=== PATIENT | female | born 1990 | race Caucasian/White ===

== ENCOUNTER 2019-08-01 14:20 | Inpatient (IN) | payer OTHER ==
[2019-08-01 16:23] VITALS: BMI 29.9
[2019-08-01] MEDS ORDERED: ELECTROLYTE-148 SOLN 1,000 ML IV SCH ×2 (16:30→21:00)
[2019-08-01] MEDS ORDERED: BUTORPHANOL TARTRATE 1 MG/ML VIAL ONE ×2 (17:34)
[2019-08-01] MEDS ORDERED: PROMETHAZINE HCL 25 MG/1 ML VIAL ONE (17:34)
[2019-08-01] MEDS ORDERED: BUTORPHANOL TARTRATE 1 MG/ML VIAL IVPUSH ONE (17:45)
[2019-08-01] MEDS ORDERED: PROMETHAZINE HCL 25 MG/1 ML VIAL IVPB ONE (17:45)
[2019-08-01 18:15] LABS: BASO % 0.6 % (0-2.0); EOS % 1.3 % (0-4.5); HEMATOCRIT 37.4 % (32.4-45.2); HEMOGLOBIN 12.4 GM/dL (10.7-15.3); LYMPH % 14.8 % (8-40); MCHC 33.2 g/dl (32.0-36.0); MEAN CELL VOLUME 87.2 fl (80-96); MEAN PLT VOLUME 8.8 fl (7.5-11.1); NEUT % 78.3 % (42.8-82.8); PLATELET COUNT 186 K/MM3 (134-434); RBC 4.29 M/mm3 (3.60-5.2); RDW 14.6 % (11.6-15.6); WHITE BLOOD COUNT 10.5 K/mm3 (4.0-10.0)
[2019-08-01 18:28] LABS: INR 0.88 (0.83-1.09); PROTHROMBIN TIME (PATIENT) 10.4 SEC (9.7-13.0)
[2019-08-01 18:38] LABS: BLOOD UREA NITROGEN 6.4 mg/dL (7-18); CALCIUM 8.4 mg/dL (8.5-10.1); CREATININE 0.6 mg/dL (0.55-1.3)
[2019-08-01] MEDS ORDERED: FENTANYL/BUPIVACAINE/NS/PF - PCEA - 50 ML DISP.SYRIN EP ONE (21:12)
--- NOTE | 2019-08-01 21:13 | HP ---
Past Medical History - Primary Care Physician PCP:: David Krueger - Admission Chief Complaint: 29yo P0 with at EGA 38w2d presented with spontaneous labor. History of Present Illness: complicated by: 1. Transfer of care to [facility] at 13 wks 2. GDM on diet diagnosde at 32 wks. Pt seen/consulted Dr. Logan for MFM Pt was admitted in early latent labor. SROM with clear fluid at 5:25pm. FHR has been category I vaginal GBS negative labs WNL. 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: No: Alzheimer's, CVA, Dementia, Migraine, Multiple Sclerosis, Peripheral Neuropathy, Parkinson's, Seizure, Syncope, TIA, Vertigo, Other Cardiovascular: No: AFIB, Aneurysm, Aortic Insufficiency, Aortic Stenosis, CAD, CHF, Deep Vein Thrombosis, HTN, Hyperlipdemia, [place], Mitral Insufficiency, Mitral Stenosis, Murmur, Pulmonary Hypertension, Other Pulmonary: No: Asthma, Bronchitis, Cancer, COPD, O2 Dependent, Pneumonia, Previously Intubated, Pulmonary Embolus, Pulmonary Fibrosis, Sleep Apnea, Other Gastrointestinal: No: Ascites, Cancer, Constipation, Crohn's Disease, Diverticulitis, Diverticulosis, Esophageal Varices, Gastritis, GERD, GI Bleed, Hemorrhoids, Hiatal Hernia, Inflamatory Bowel Disease, Irritable Bowel Disease, Pancreatitis, Peptic Ulcer Disease, Ulcerative Colitis, Other Hepatobiliary: No: Cirrhosis, Cholelithiasis, Cholecystitis, Choledocholithiasis , Hepatitis A, Hepatitis B, Hepatitis C, Other Renal/: No: Renal Failure, Renal Inusuff, BPH, Cancer, Hematuria, Hemodialysis , Neurogenic Bladder, Renal Calculi, UTI, Other Reproductive: No: Ectopic , Endometriosis, Fibroids, PID, Polycystic Ovary Syndrome, Postmenopausal, Other ...: 1 ...Para: 0 ...LMP: 11/09/18 ... Weeks Gestation by Dates: 38.2 ...EDC by Dates: 08/16/19 ...EDC by Sono: 08/13/19 Heme/Onc: No: Anemia, B12 Deficiency, Bleeding Disorder, Cancer, Current Chemotherapy, Current Radiation Therapy, Hemochromatosis, Hypercoaguable State, Myeloproliferative Synd, Sickle Cell Disease, Sickle Cell Trait, Thrombocytopenia, Other Infectious Disease: No: AIDS, C-Diff, Herpes Zoster, HIV, MRSA, STD's, Tuberculosis, VREF, Other Psych: No: Addictions, Anxiety, Bipolar, Depression, Panic, Psychosis, Schizophrenia, Other Musculoskeletal: No: Bursitis, Chronic low back pain, Hemiparesis, Hemiplegia, Osteoarthritis, Paraplegia, Other Rheumatology: No: Fibromyalgia, Gout, Lupus, Rheumatoid Arthritis, Sarcoidosis, Vasculitis, Other ENT: No: Allergic Rhinitis, Sinusitis, Other Endocrine: No: Alg[place]'s Disease, Francis's Disease, Diabetes Insipidus, Diabetes Mellitus, Hyperparathyroidism, Hyperthyroidism, Hypothyroidism, Osteopenia, SIADH, Other Dermatology: No: Basal Cell, Cellulitis, Eczema, Melanoma, Psoriasis, Squamous Cell, Other - Past Surgical History Past Surgical History: Yes: None Hx Myomectomy: No Hx Transabdominal Cerclage: No - Smoking History Smoking history: Never smoked Have you smoked in the past 12 months: No - Alcohol/Substance Use Hx Alcohol Use: No History of Substance Use: reports: None - Social History Usual Living Arrangement: Yes: With Spouse Do you think of yourself as: Straight/Heterosexual ADL: Independent Occupation: works for [employer] History of Recent Travel: No Home Medications - Allergies Allergies/Adverse Reactions: Allergies Allergy/AdvReac Type Severity Reaction Status Date / Time No Known Allergies Allergy Verified 08/01/19 16:07 - Home Medications Home Medications: Ambulatory Orders Vitamins (Sjr) - 1 tab PO DAILY 08/01/19 Family Medical History Family History: Denies Review of Systems Findings/Remarks: Pt was uncomfortable with ctx's. Now is comfortable after epidural. - Review of Systems Constitutional: reports: No Symptoms Eyes: reports: No Symptoms HENT: reports: No Symptoms Neck: reports: No Symptoms Cardiovascular: reports: No Symptoms Respiratory: reports: No Symptoms Gastrointestinal: reports: No Symptoms Genitourinary: reports: No Symptoms Breasts: reports: No Symptoms Reported Musculoskeletal: reports: No Symptoms Integumentary: reports: No Symptoms Neurological: reports: No Symptoms Endocrine: reports: No Symptoms Hematology/Lymphatic: reports: No Symptoms Psychiatric: reports: No Symptoms Pain Intensity: 0 (after epidural) Physical Exam - Maternity Vital Signs: Vital Signs Temperature 98.6 F 08/01/19 19:54 Pulse Rate 70 08/01/19 19:54 Respiratory Rate 18 08/01/19 19:54 Blood Pressure 130/78 08/01/19 19:54 O2 Sat by Pulse Oximetry (%) Constitutional: Yes: Well Nourished, No Distress, Calm Eyes: Yes: WNL, Conjunctiva Clear, EOM Intact HENT: Yes: WNL, Atraumatic, Normocephalic Neck: Yes: WNL, Supple, Trachea Midline Cardiovascular: Yes: WNL, Regular Rate and Rhythm Lungs: Clear to auscultation, Normal air movement - Abdominal Exam/OB Fundal Height: 38 Number of Fetuses: Single Presentation: Vertex Contractions: Yes Regularity: Regular Intensity: Moderate Monitor Mode: External Heart Rate (range): 130 Heart Rate Location: Midline Category: I Accelerations: Non-Uniform Decelerations: None - Vaginal Exam/OB Vaginal Bleediing: No Speculum Exam: No Dilatation (cm): 3 Effacement (%): 80 Amniotic Membrane Status: Ruptured (SROM) Amniotic Fluid: Yes: Clear Presentation: Vertex/Position Station: -1 (Gynecoid pelvimetry) - Physical Exam Musculoskeletal: Yes: WNL Extremities: Yes: WNL Edema: No Integumentary: Yes: WNL Deep Tendon Reflex Grade: Normal +2 ...Motor Strength: WNL Psychiatric: Yes: WNL, Alert, Oriented - Labs Lab Results: CBC, BMP 08/01/19 17:50 08/01/19 17:50 Hemorrhage Risk Assessment - Risk Factors Medium Risk Factors: Yes: None High Risk Factors: Yes: None Risk Score: 1 Risk Level: Medium Risk Imaging - Results Ultrasound: Report Reviewed Assessment/Plan 29yo P0 with at EGA 38w2d presented with spontaneous labor. Fetus with Category I tracing. Labor in latent phase. GDM on diet. Plan to follow [facility] Pt now has epidural. Plan to monitor labor progress. Anticipate
[2019-08-01] MEDS ORDERED: NALOXONE HCL 0.4 MG/ML VIAL IVPUSH PRN (22:41)
[2019-08-01] MEDS ORDERED: FENTANYL/BUPIVACAINE/NS/PF - PCEA - 50 ML DISP.SYRIN EP SCH (22:45)
--- NOTE | 2019-08-01 23:10 | PN ---
Ante-Partal Exam - Subjective Subjective: No complaints Vital Signs: Vital Signs Temperature 98.6 F 08/01/19 19:54 Pulse Rate 70 08/01/19 19:54 Respiratory Rate 18 08/01/19 19:54 Blood Pressure 130/78 08/01/19 19:54 O2 Sat by Pulse Oximetry (%) Bleeding: No Headache: No Visual changes: No Right upper quadrant pain: No Pain (scale 1-10): 0 - Contractions Contractions: Yes Regularity: Irregular (q2-4min) Intensity: Unaware Monitor Mode: External - Exam during Labor Heart Rate: 140 Variability: Moderate Heart Rate Location: Midline Category: I Monitor Accelerations: Absent Monitor Decelerations: None Exam: Vaginal Dilatation (cm): 7 Effacement (%): 90 Amniotic Membrane Status: Leaking Amniotic Fluid: Clear Presentation: Vertex Station: -1 - Intrapartum Hemorrhage Risk Medium Risk Factors: None High Risk Factors: None Risk Score: 0 Risk Level: Low Risk - Assessment/Plan Assessment/Plan: Progressed to active labor. Continue to monitor labor. Anticipate .
[2019-08-02] MEDS ORDERED: OXYTOCIN 20 UNITS in 0.9% NS 20 UNIT/1,000 ML INFUS.BAG IV ONE (00:21)
[2019-08-02] MEDS ORDERED: LIDOCAINE HCL 1% PRESERVATIVE FREE - 30ML VIAL ONE (00:58)
[2019-08-02] MEDS ORDERED: OXYTOCIN 10 UNITS/ML VIAL ONE (00:58)
[2019-08-02] MEDS ORDERED: OXYTOCIN 10 UNITS/ML VIAL IM ONE (01:30)
[2019-08-02] MEDS ORDERED: BISACODYL 10 MG SUPP.RECT RC PRN (01:46)
[2019-08-02] MEDS ORDERED: BENZOCAINE 28 GM HEMORRHOIDAL OINTMENT TP PRN (01:46)
[2019-08-02] MEDS ORDERED: BENZOCAINE 20% 57 GM BOTTLE TP PRN (01:46)
[2019-08-02] MEDS ORDERED: WITCH HAZEL 50% (TUCKS) 40 PAD/JAR PAD TP PRN (01:46)
[2019-08-02] MEDS ORDERED: METHYLERGONOVINE MALEATE 0.2 MG/1 ML AMP IM PRN (01:46)
[2019-08-02] MEDS ORDERED: OXYTOCIN 20 UNITS in 0.9% NS 20 UNIT/1,000 ML INFUS.BAG IV SCH (02:00)
[2019-08-02] MEDS ORDERED: IBUPROFEN 600 MG TABLET (FP) PO ONE ×2 (02:31→13:27)
[2019-08-02] MEDS ORDERED: ACETAMINOPHEN 325 MG TABLET (FP) ONE ×2 (02:31→13:27)
[2019-08-02] MEDS: ACETAMINOPHEN 325 MG TABLET (FP) PO PRN ×3 (03:00→21:05)
[2019-08-02] MEDS: IBUPROFEN 600 MG TABLET (FP) PO PRN ×3 (03:00→21:04)
--- NOTE | 2019-08-02 05:13 | PN ---
Progress Note (short form) - Note Progress Note: cx 4 cm 80 vx -2 mr, fhr cat 1, irregular contraction
--- NOTE | 2019-08-02 06:26 | PN ---
Delivery - Delivery Vaginal Delivery: No Problems, Spontaneous Type of Anesthesia: Epidural Episiotomy/Laceration: Midline EBL (cc): 250 Delivery, Single - Stages of Labor Date 1st Stage Initiatied: 08/01/19 Time 1st Stage Initiated: 17:30 Date 2nd Stage Initiated: 08/02/19 Time 2nd Stage Initiated: 00:30 Date of Delivery: 08/02/19 Time of Delivery: 01:14 Date Placenta Delivered: 08/02/19 Time Placenta Delivered: : Placenta: Yes: Spontaneous, Normal Configuration - Condition of Accountant Certified Public/Hearing Stenographer Present: No Gender: Male Weight: 3.118 kg Position: Right, OA Total Hours ROM (Hrs/Mins): 7h 49m - 1 Minute Total Score: 9 5 Minutes Total Score: 9 - [place] Feeding Plan Initial Plan: Elected not to breastfeed exclusively throughout hospitalization Benefits of Exclusively reinforced: Yes
[2019-08-02 08:53] LABS: POC NITRAZINE POS
[2019-08-02] MEDS: PRENATAL VITAMINS W/ FOLIC ACID TABLET (FP) PO SCH (09:38)
[2019-08-03 08:17] LABS: BASO % 0.6 % (0-2.0); EOS % 2.2 % (0-4.5); HEMATOCRIT 29.1 % (32.4-45.2); HEMOGLOBIN 9.5 GM/dL (10.7-15.3); LYMPH % 25.7 % (8-40); MCH 29.1 pg (25.7-33.7); MCHC 32.7 g/dl (32.0-36.0); MEAN PLT VOLUME 8.6 fl (7.5-11.1); MONO % 7.2 % (3.8-10.2); NEUT % 64.3 % (42.8-82.8); PLATELET COUNT 171 K/MM3 (134-434); RBC 3.27 M/mm3 (3.60-5.2); RDW 14.6 % (11.6-15.6); WHITE BLOOD COUNT 13.3 K/mm3 (4.0-10.0)
--- NOTE | 2019-08-03 08:26 | PN ---
Post Progress Note - Subjective Subjective: Patient without acute complaints. Reports tolerating oral intake without nausea or vomiting. Ambulating without dizziness. Denies fevers or chills. Pain well controlled with oral pain medication. without difficulty. Passing flatus. Type of Delivery: Vital Signs: Vital Signs Temperature 97.9 F 08/03/19 05:44 Pulse Rate 79 08/03/19 05:44 Respiratory Rate 18 08/03/19 05:44 Blood Pressure 95/55 L 08/03/19 05:44 O2 Sat by Pulse Oximetry (%) 97 08/02/19 02:45 Breast Exam: Yes: Soft Uterus: Yes: Fundus Firm Abdomen/GI: Yes: Abdomen soft, Passing flatus, Tolerating PO. No: Abdominal Distention, Tender Lochia: Yes: Rubra Lochia, amount: Moderate Extremities: Yes: Calves non-tender. No: Edema Activity: Ambulating - Labs Labs: CBC WBC 13.3 K/mm3 (4.0-10.0) H 08/03/19 07:36 RBC 3.27 M/mm3 (3.60-5.2) L 08/03/19 07:36 Hgb 9.5 GM/dL (10.7-15.3) L 08/03/19 07:36 Hct 29.1 % (32.4-45.2) L D 08/03/19 07:36 MCV 89.0 fl (80-96) 08/03/19 07:36 MCH 29.1 pg (25.7-33.7) 08/03/19 07:36 MCHC 32.7 g/dl (32.0-36.0) 08/03/19 07:36 RDW 14.6 % (11.6-15.6) 08/03/19 07:36 Plt Count 171 K/MM3 (134-434) 08/03/19 07:36 MPV 8.6 fl (7.5-11.1) 08/03/19 07:36 Absolute Neuts (auto) 8.5 K/mm3 (1.5-8.0) H 08/03/19 07:36 Neutrophils % 64.3 % (42.8-82.8) 08/03/19 07:36 Lymphocytes % 25.7 % (8-40) D 08/03/19 07:36 Monocytes % 7.2 % (3.8-10.2) 08/03/19 07:36 Eosinophils % 2.2 % (0-4.5) 08/03/19 07:36 Basophils % 0.6 % (0-2.0) 08/03/19 07:36 Nucleated RBC % 0 % (0-0) 08/03/19 07:36 Assessment/Plan 29 yo PPD #1 s/p , afebrile, vital signs stable, doing well 1. Continue routine care. 2. AM CBC with mild asymptomatic anemia 3. Rh positive status, no rhogam indicated. 4. Encourage ambulation 5. Continue oral pain medication 6. Anticipate discharge home day #2
[2019-08-03] MEDS: PRENATAL VITAMINS W/ FOLIC ACID TABLET (FP) PO SCH (10:33)
[2019-08-03] MEDS: ACETAMINOPHEN 325 MG TABLET (FP) PO PRN ×2 (12:02→19:07)
[2019-08-03] MEDS: DOCUSATE SODIUM 100 MG CAPSULE (FP) PO PRN ×2 (12:02→21:08)
[2019-08-03 17:18] LABS: BASO % 0.5 % (0-2.0); EOS % 1.9 % (0-4.5); HEMATOCRIT 32.2 % (32.4-45.2); HEMOGLOBIN 10.5 GM/dL (10.7-15.3); LYMPH % 18.5 % (8-40); MCHC 32.7 g/dl (32.0-36.0); MEAN CELL VOLUME 88.7 fl (80-96); MEAN PLT VOLUME 8.5 fl (7.5-11.1); MONO % 5.4 % (3.8-10.2); NEUT % 73.7 % (42.8-82.8); PLATELET COUNT 200 K/MM3 (134-434); RBC 3.63 M/mm3 (3.60-5.2); RDW 14.9 % (11.6-15.6)
[2019-08-03] MEDS: IBUPROFEN 600 MG TABLET (FP) PO PRN (19:06)
[2019-08-03 21:40] VITALS: TEMP 98.2
[2019-08-03] MEDS ORDERED: SENNOSIDES/DOCUSATE COMBO (SENNA PLUS) TABLET (UD) PO PRN (22:00)
[2019-08-04] MEDS: IBUPROFEN 600 MG TABLET (FP) PO PRN (08:05)
--- NOTE | 2019-08-04 08:19 | PN ---
Post Progress Note - Subjective Subjective: Patient without acute complaints. Patient reports chest pain yesterday, resolved - no SOB or palpitations Reports tolerating oral intake without nausea or vomiting. Ambulating without dizziness. Denies fevers or chills. Pain well controlled with oral pain medication. without difficulty. Passing flatus. Post Day: 2 Type of Delivery: Vital Signs: Vital Signs Temperature 98.2 F 08/03/19 21:39 Pulse Rate 98 H 08/03/19 21:39 Respiratory Rate 20 08/03/19 21:39 Blood Pressure 109/65 08/03/19 21:39 O2 Sat by Pulse Oximetry (%) 97 08/02/19 02:45 Breast Exam: Yes: Soft Uterus: Yes: Fundus Firm, Fundus below umbilicus Abdomen/GI: Yes: Abdomen soft, Passing flatus, Tolerating PO. No: Abdominal Distention, Tender Lochia: Yes: Rubra Lochia, amount: Small Extremities: Yes: Calves non-tender. No: Edema Activity: Ambulating - Labs Labs: CBC WBC 14.0 K/mm3 (4.0-10.0) H 08/03/19 17:00 RBC 3.63 M/mm3 (3.60-5.2) 08/03/19 17:00 Hgb 10.5 GM/dL (10.7-15.3) L 08/03/19 17:00 Hct 32.2 % (32.4-45.2) L 08/03/19 17:00 MCV 88.7 fl (80-96) 08/03/19 17:00 MCH 29.0 pg (25.7-33.7) 08/03/19 17:00 MCHC 32.7 g/dl (32.0-36.0) 08/03/19 17:00 RDW 14.9 % (11.6-15.6) 08/03/19 17:00 Plt Count 200 K/MM3 (134-434) 08/03/19 17:00 MPV 8.5 fl (7.5-11.1) 08/03/19 17:00 Absolute Neuts (auto) 10.3 K/mm3 (1.5-8.0) H 08/03/19 17:00 Neutrophils % 73.7 % (42.8-82.8) 08/03/19 17:00 Lymphocytes % 18.5 % (8-40) D 08/03/19 17:00 Monocytes % 5.4 % (3.8-10.2) 08/03/19 17:00 Eosinophils % 1.9 % (0-4.5) 08/03/19 17:00 Basophils % 0.5 % (0-2.0) 08/03/19 17:00 Nucleated RBC % 0 % (0-0) 08/03/19 17:00 Assessment/Plan 29 yo PPD #1 s/p , afebrile, vital signs stable, doing well for DC home today 1. Patient stable for discharge home today. 2. Patient encouraged to contact MD for: - Severe pain not controlled by oral pain medication - Fevers or chills - Nausea or vomiting, intolerance of oral intake 3. Patient to follow up in office in 4-6 weeks for visit
[2019-08-04] MEDS: PRENATAL VITAMINS W/ FOLIC ACID TABLET (FP) PO SCH (09:46)
[2019-08-04 11:07] VITALS: BP 114/68; PULSE 71
== END 2019-08-04 12:10 | disposition home or self-care (01) | DRG 807 ==
LOC: JDEL 14:20 → JLDR 15:20 → J3W 08-02 14:36
PROVIDERS: ADMIT Obstetrics & Gynecology; ATTEND Obstetrics & Gynecology
PROC: 10E0XZZ Delivery of Products of Conception, External Approach (ICD-10-PCS; principal; 2019-08-02)
PROC: 0W8NXZZ Division of Female Perineum, External Approach (ICD-10-PCS; 2019-08-02)
DX: O24.420 Gestational diabetes mellitus in childbirth, diet controlled (principal); Z37.0 Single live birth; O99.013 Anemia complicating pregnancy, third trimester; Z3A.38 38 weeks gestation of pregnancy
CPT/HCPCS: 36415; 59409; 80048; 82962; 83986-QW; 85025; 85610; 85730; 86593; 86850; 86900; 86901; 87389